=== PATIENT | male | born 1980 | race Caucasian/White ===

== ENCOUNTER 2019-01-04 02:21 | Emergency (ER) | payer MEDICAID ==
[~2019-01-04] VITALS: Ht 182.9 cm; Wt 111.6 kg
[2019-01-04 02:25] VITALS: BP 135/67
--- NOTE | 2019-01-04 02:30 | NUR ---
PT AMBULATED TO BED #8
--- NOTE | 2019-01-04 02:32 | NUR ---
38/M PRESENTED TO ED WITH C/O DIFFICULTY BREATHNG AND SOB X2 HOURS. O2 AT 100% ON RA. CONSUMED TEQUILA AT 1900. +NAUSEA. STATES "I AM GOING TRHOUGH A DIVORCE SO I DON'T KNOW WHAT THE CAUSE OF THIS IS. VSS. CLEAR BILAT LUNG SOUNDS. NO USE OF EXCESSORY MUSCLES. CHEST PAIN 7/10 PRESSURE. PMH NKA
[2019-01-04 03:12] LABS: EOSINOPHILS # (AUTO) 0.2 K/uL (0-0.4); PLATELET COUNT (AUTO) 174 K/uL (140-450); RED BLOOD CELL COUNT(AUTO) 4.84 MIL/uL (4.20-6.10)
[2019-01-04 03:23] LABS: BASOPHILS % (AUTO) 0.4 % (0.0-2.0); HEMATOCRIT 46.3 % (36-52); HEMOGLOBIN 15.9 g/dL (12.0-18.0); LYMPHOCYTES # (AUTO) 1.6 K/uL (2.0-11.5); LYMPHOCYTES % (AUTO) 27.2 % (20.5-51.1); MEAN CORPUSCULAR HEMOGLOBIN 33 pg (27-31); MEAN CORPUSCULAR HGB CONC 34 g/dL (33-37); MEAN CORPUSCULAR VOLUME 95.7 fL (80-94); MONOCYTES # (AUTO) 0.5 K/uL (0.8-1.0); MONOCYTES % (AUTO) 8.1 % (1.7-9.3); NEUTROPHILS # (AUTO) 3.7 K/uL (1.8-7.7); NEUTROPHILS % (AUTO) 61.3 % (42.2-75.2); RED CELL DISTRIBUTION WIDTH 13.7 % (11.6-13.7); WHITE BLOOD COUNT (AUTO) 6.1 K/uL (4.8-10.8)
[2019-01-04 03:33] LABS: ALBUMIN 3.8 g/dL (3.4-5.0); ANION GAP 14.6 (8-16); CARBON DIOXIDE 25.7 mmol/L (21-32); CREATININE 0.8 mg/dL (0.7-1.3); POTASSIUM 3.3 mmol/L (3.5-5.1); TOTAL BILIRUBIN 0.4 mg/dL (0.0-1.0)
[2019-01-04 03:34] LABS: PROTHROMBIN TIME 10.7 secs (10.8-13.4)
--- NOTE | 2019-01-04 03:43 | NUR ---
PT SITTING UP IN BED NO SIGNS OF DISTRESSS. ERMD AT BEDSIDE. VSS.
--- NOTE | 2019-01-04 04:52 | NUR ---
PT LAYING IN BED. NO SIGNS OF DISTRESS. WILL CONTINUE TO MONITOR. VSS.
[2019-01-04 05:10] VITALS: BP 32/84
--- NOTE | 2019-01-04 05:10 | NUR ---
Patient discharged with v/s stable. Written and verbal after care instructions given and explained. Patient verbalized understanding. Ambulatory with steady gait. All questions addressed prior to discharge. Advised to follow up with PMD.
== END 2019-01-04 05:10 | disposition home or self-care (01) ==
LOC: MED 02:21
DX: R07.89 Other chest pain (principal); R06.02 Shortness of breath; F41.0 Panic disorder [episodic paroxysmal anxiety]; F17.200 Nicotine dependence, unspecified, uncomplicated
CPT/HCPCS: 36415; 71045; 80053; 84484; 85025; 85610; 85730; 93005; 99284; Q0092; 99406

== ENCOUNTER 2019-01-04 10:12 | Emergency (ER) | payer MEDICAID ==
[~2019-01-04] VITALS: Ht 180.3 cm; Wt 95.3 kg
--- NOTE | 2019-01-04 10:12 | NUR ---
Patient BIBA ACLS, transferred to bed 8. RN evaluating patient at bedside.
[2019-01-04 10:15] VITALS: BP 123/80
--- NOTE | 2019-01-04 10:20 | NUR ---
BIBA C/O ATYPICAL STERNAL CP, RADIATING TO SHOULDERS, PAIN 6/10, WITH ANXIETY AND SOB X LAST NIGHT. ASPIRIN AND NITRO GIVEN IN ROUTE. PT AT 98% RA. RR 12. NSR AT 93 HR. PT RECENTLY GOING THROUGH DIVORCE. WAS DISCHARGED FROM HERE LAST NIGHT WITHOUT PRESCRIPTION. BLOOD WORKS AND EKG DONE YESTERDAY NORMAL. VSS. AA0X4. SKIN WARM AND DRY. BED IS DOWN, LOCKED, BED RAIL X 1, ERMD TO SEE PT. PMH- DENIES RX-DENIES
--- NOTE | 2019-01-04 10:31 | NUR ---
Dr. Roberts evaluating patient at bedside.
[2019-01-04 10:45] VITALS: BP 125/79
--- NOTE | 2019-01-04 10:45 | NUR ---
Patient discharged with v/s stable. Written and verbal after care instructions given and explained. Patient alert, oriented and verbalized understanding of instructions. Ambulatory with steady gait. All questions addressed prior to discharge. ID band removed. Rx of XANAX given. Patient educated on indication of medication including possible reaction and side effects. Opportunity to ask questions provided and answered.
== END 2019-01-04 10:45 | disposition home or self-care (01) ==
LOC: MED 10:12
DX: F41.9 Anxiety disorder, unspecified (principal); F17.200 Nicotine dependence, unspecified, uncomplicated; M25.519 Pain in unspecified shoulder
CPT/HCPCS: 93005; 99283